=== PATIENT | male | born 1990 | race Asian ===

== ENCOUNTER 2017-12-09 21:44 | Emergency (ER) | payer BC ==
--- NOTE | 2017-12-09 23:45 | CT ---
HEAD CT WITHOUT CONTRAST: HISTORY: Headache. Previous fall. Slip and fall. Hit head on floor. COMPARISON: None. TECHNIQUE: A noncontrast head CT is performed from the skull base to the skull vertex. FINDINGS: No parenchymal hemorrhage. No extraaxial hematoma. No midline shift. The basilar cisterns are yuan nt. Age appropriate brain volume. Cortical bird white matter definitively is preserved. The ventri cles and sulci are patent and symmetric. The calvarium is intact. Adequate aeration of the sinuses and mastoid air cells. IMPRESSION: No intracranial post traumatic sequelae. POS: [facility]
== END 2017-12-09 23:55 | disposition home or self-care (01) ==
LOC: SCSER 21:44
DX: S00.93XA Contusion of unspecified part of head, initial encounter (principal); W01.198A Fall on same level from slipping, tripping and stumbling with subsequent striking against other object, initial encounter; Y99.0 Civilian activity done for income or pay
CPT/HCPCS: 70450